=== PATIENT | female | born 1990 | race Two or more races ===

== ENCOUNTER 2018-05-28 15:09 | Inpatient (IN) | END 2018-05-30 20:17 | disposition home or self-care (01) | DRG 781 ==

== ENCOUNTER 2018-06-05 19:32 | Outpatient (CLI) | END 2018-06-06 00:35 | disposition home or self-care (01) ==

== ENCOUNTER 2018-06-12 16:43 | Inpatient (IN) | END 2018-06-13 20:30 | disposition home or self-care (01) | DRG 781 ==

== ENCOUNTER 2018-06-15 04:06 | Outpatient (CLI) | END 2018-06-15 06:10 | disposition left against medical advice (07) ==

== ENCOUNTER 2018-06-21 14:51 | Inpatient (IN) | END 2018-06-24 20:35 | disposition home or self-care (01) | DRG 766 ==